=== PATIENT | male | born 1990 | race Caucasian/White ===

== ENCOUNTER 2019-10-10 13:30 | Emergency (ER) | payer OTHER, SELFPAY ==
--- NOTE | 2019-10-10 13:34 | ECG_ITS ---
Measurements Intervals [place] Rate: 57 P: 71 MS: 123 QRS: 40 QRSD: 109 T: 38 QT: 447 QTc: 438 SINUS BRADYCARDIA POSSIBLE LEFT ATRIAL ENLARGEMENT [-0.1mV P WAVE IN V1/V2] POSSIBLE LEFT VENTRICULAR HYPERTROPHY [VOLTAGE CRITERIA PLUS LAE OR QRS WIDENING] No previous ECG available for comparison Electronically Signed On 10-10-2019 18:56:03 CDT by Sara Ornelas M.D. [id number]
[2019-10-10 14:02] VITALS: BP 132/87; PULSE 76; RESP 18; TEMP 36.7; O2SAT 99; BMI 24.4
[2019-10-10 15:11] LABS: Basophils % 0.4 %; Eosinophils # 0.1 10^3/uL (0.0-0.8); Eosinophils % 0.8 %; Hematocrit 43.8 % (42.0-52.0); Hemoglobin 14.9 g/dL (11.7-16.6); Lymphocytes # 1.6 10^3/uL (0.8-4.8); Lymphocytes % 21.2 %; Mean Corpuscular Hemoglobin 30.3 pg (28.0-34.0); Mean Corpuscular Volume 89.2 fL (80-94); Mean Platelet Volume 11.4 fL (7.4-10.4); Monocytes # 0.5 10^3/uL (0.2-0.9); Monocytes % 6.6 %; Neutrophils # 5.3 10^3/uL (1.8-7.7); Neutrophils % 70.7 %; Nucleated Red Blood Cells % 0 %; Platelet Count 208 10^3/cmm (130-400); Red Blood Count 4.91 10^6/uL (4.1-5.3); Red Cell Distribution Width 12.2 % (12.1-15.1); White Blood Count 7.6 10^3/uL (4.0-10.0)
[2019-10-10 15:43] LABS: Alanine Aminotransferase 17 U/L (0-41); Albumin Level 4.4 g/dL (3.5-5.2); Alkaline Phosphatase 56 IU/L (40-130); Anion Gap 12.8 (5-19); Aspartate Amino Transferase 14 U/L (0-40); Blood Urea Nitrogen 11 mg/dL (6-20); Calcium 9.2 mg/dL (8.5-10.5); Carbon Dioxide 26 mmol/L (22-29); Chloride 102 mmol/L (98-107); Globulin 2.7 g/dL (1.3-4.6); Glomerular Filtration Rate 115.1 mL/min (90-130); Glucose 95 mg/dL (65-115); Osmolality Calculated 280 mOsm/kg (285-295); Potassium 3.8 mmol/L (3.5-5.1); Sodium 137 mmol/L (136-145); Total Bilirubin 0.5 mg/dL (0.15-1.2); Total Protein 7.1 g/dL (6.6-8.7)
--- NOTE | 2019-10-10 15:46 | W.ED.SYNCOPE ---
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 He was standing talking to some coworkers and suddenly felt lightheaded and dizzy. Within a few seconds he fell forward and passed out. He did not injure himself as 1 of his coworkers caught him before he hit the ground. They say he was out just for a few seconds and was shaking a little bit. EMS was called and told him that his eyes looked glazed. Does not sound like he had a true post ictal phase. He denies any recent illness whatsoever. He specifically denies cough, fever, night sweats, weight loss, urinary difficulties, excessive thirst, stool changes, leg swelling or pain. He has never had an episode like this in the past. No unusual activities today. He has been eating and drinking like normal. He was feeling fine prior to the episode. MD complaint: loss of consciousness Onset (ago): hour(s) (Approximately 11:00) -: second(s) Prodromal symptoms: lightheaded Witnessed: Yes - by Bystander Context: at rest and standing up Associated symptoms: Reports no associated symptoms; Deny abdominal pain, chest pain, fever(s), headache(s) or nausea Review of Systems General: Reports: 10 or more systems reviewed and unremarkable except in HPI and below Const: Denies: fever(s), chills, fatigue or malaise Eyes: Denies: change in vision ENMT: Denies: odynophagia Card: Denies: chest pain or swelling of feet/ankles Resp: Denies: dyspnea, productive cough or non-productive cough GI: Denies: abdominal pain, nausea or vomiting : Denies: flank pain Musc: Denies: neck pain or back pain Skin/Breast: Denies: rash Neuro: Denies: headache(s), numbness in extremities or weakness in extremities Endo: Denies: polyuria, polydipsia or excessive sweating Mitch/Lymph: Denies: easy bruising or easy bleeding PFSH ED PFSH: Social History Smoking and tobacco status: current every day smoker Physical Exam Const: COMMON NORMALS: no acute distress, patient oriented x3, no limitations and alert GENERAL APPEARANCE: cooperative and comfortable HENMT: HEAD & SCALP: normal to inspection FACE & SINUS: normal facial exam Eye: GENERAL EYE: appearance normal, both eyes and all related structures Neck/C-Spine: COMMON NORMALS: supple, no meningeal signs and no JVD Chest: COMMONS NORMALS: normal inspection of the chest Resp: COMMON NORMALS: normal respiratory effort, No use of accessory muscles and clear to auscultation bilaterally AUSCULTATION: clear to auscultation bilaterally Cardio: COMMON NORMALS: no JVD, regular rate, regular rhythm and No murmurs present (Cardio) RATE: regular rate RHYTHM: regular rhythm GI: COMMON NORMALS: Normal to inspection, nondistended, normoactive bowel sounds present, Soft to palpation and non-tender INSPECTION: Yes normal to inspection AUSCULTATION: Yes normoactive bowel sounds PALPATION: Yes Soft to palpation Back/Pelvis: COMMON NORMALS: thoracic and lumbar spine normal to inspection Extremity: COMMON NORMALS: normal to inspection Neuro: COMMON NORMALS: patient oriented x3, moves all extremities, no focal motor deficits and no sensory deficits noted SENSORIUM/ORIENTATION: Yes alert MENINGEAL SIGNS: Yes no meningeal signs Psych: COMMON NORMALS: mental status grossly normal, cooperative and normal affect Skin: COMMON NORMALS: no rashes or lesions noted and turgor normal GENERAL SKIN EXAM: no rashes or lesions noted and turgor normal Course ED course: Patient was completely stable in the ED. Orthostatics were negative. EKGs were unremarkable twice. Labs were all unremarkable. I have discussed with him the need for follow-up and put in an order for case management to arrange for follow-up. He drives for a living and I have asked him not to drive which is can to be a hardship for him but he understands the reasoning behind it and agrees to not drive. Hopefully he will be able to get a close follow-up appointment so that further investigation can be undertaken if needed. Vital Signs: Vital signs: Vital Signs Temperature 98.1 F 10/10/19 14:02 Pulse Rate 67 10/10/19 15:52 Respiratory Rate 18 10/10/19 14:02 Blood Pressure 127/70 10/10/19 15:52 Pulse Oximetry 99 10/10/19 14:02 MDM - Syncope Lab Data: Labs: Lab Results 10/10/19 10/10/19 10/10/19 Range/Units 14:29 15:07 15:07 WBC 7.6 (4.0-10.0) 10^3/ uL RBC 4.91 (4.1-5.3) 10^6/u L Hgb 14.9 (11.7-16.6) g/dL Hct 43.8 (42.0-52.0) % MCV 89.2 (80-94) fL MCH 30.3 (28.0-34.0) pg MCHC 34.0 (30.0-36.0) g/dL RDW 12.2 (12.1-15.1) % Plt Count 208 (130-400) 10^3/c mm MPV 11.4 H (7.4-10.4) fL Neut % (Auto) 70.7 % Lymph % (Auto) 21.2 % [place] % (Auto) 6.6 % Eos % (Auto) 0.8 % Baso % (Auto) 0.4 % Neut # (Auto) 5.3 (1.8-7.7) 10^3/u L Lymph # (Auto) 1.6 (0.8-4.8) 10^3/u L [place] # (Auto) 0.5 (0.2-0.9) 10^3/u L Eos # (Auto) 0.1 (0.0-0.8) 10^3/u L Baso # (Auto) 0.0 (0.0-0.1) 10^3/u L Nucleated RBC % (a uto) 0 % Nucleated RBCs # 0.0 /100WBC Sodium 137 (136-145) mmol/L Potassium 3.8 (3.5-5.1) mmol/L Chloride 102 (98-107) mmol/L Carbon Dioxide 26 (22-29) mmol/L Anion Gap 12.8 (5-19) BUN 11 (6-20) mg/dL Creatinine 0.8 (0.7-1.2) mg/dL GFR Calculation 115.1 (90-130) mL/min Glucose 95 (65-115) mg/dL Calculated Osmolal ity 280 L (285-295) mOsm/k g Calcium 9.2 (8.5-10.5) mg/dL Total Bilirubin 0.5 (0.15-1.2) mg/dL AST 14 (0-40) U/L ALT 17 (0-41) U/L Alkaline Phosphata se 56 (40-130) IU/L Total Protein 7.1 (6.6-8.7) g/dL Albumin 4.4 (3.5-5.2) g/dL Globulin 2.7 (1.3-4.6) g/dL Urine Color Yellow (Yellow) Urine Appearance Clear (CLEAR) Urine pH 6 (5-7) Ur Specific Gravit y 1.010 (1.005-1.030) Urine Protein Neg (Negative) Urine Glucose (UA) Norm (Normal) Urine Ketones Negative (Negative) Urine Blood Neg (Negative) Urine Nitrate Negative (Negative) Urine Bilirubin Neg (NEGATIVE) Urine Urobilinogen Norm (Negative) mg/dL Ur Leukocyte Lyla ase Negative (Negative) Discharge Plan Discharge Patient Disposition: Home, Self-Care Clinical Impression: Syncope Qualifiers: Syncope type: unspecified Qualified Code(s): R55 - Syncope and collapse Condition: Stable Prescriptions: No Action No Known Home Medications RF: 0 Discharge Orders: Discharge Order (Routine); Ordered 10/10/19 Ordered By: Yojana Greenwood Discharge Diet: Usual diet Discharge Activity: Resume usual activity and Return to work/school after cleared by PCP/Specialist Patient Instructions: Syncope (ED) Activity Restrictions/Additional Instructions: Do not drive until you have been seen and cleared by a follow up physician. Return to the ED if any further episodes of passing out or nearly passing out. Expect someone to call you about setting up a follow up appointment on Sunday. Coding Level of Care Code ED [employer] Economist for [place] Fwd Exam Comprehensive
[2019-10-10 15:52] VITALS: BP 112/84; BP 127/70; BP 128/71; PULSE 67; PULSE 69; PULSE 83
[2019-10-10 15:58] LABS: Add Urine Microscopic? NO
[2019-10-10 16:06] LABS: Bilirubin Urine Neg (NEGATIVE); Blood Urine Neg (Negative); Glucose Urine UA Norm (Normal); Ketones Urine Negative (Negative); Leukocyte Esterase Urine Negative (Negative); Nitrate Urine Negative (Negative); Protein Urine Neg (Negative); Urine Appearance Clear (CLEAR); Urine Color Yellow (Yellow); Urobilinogen Urine Norm (Negative); pH Urine 6 (5-7)
--- NOTE | 2019-10-10 16:58 | ECG_ITS ---
Measurements Intervals [place] Rate: 60 P: 72 OR: 124 QRS: 39 QRSD: 110 T: 32 QT: 449 QTc: 452 SINUS RHYTHM POSSIBLE LEFT VENTRICULAR HYPERTROPHY [VOLTAGE CRITERIA PLUS LAE OR QRS WIDENING] No previous ECG available for comparison Electronically Signed On 10-10-2019 18:56:09 CDT by Sara Ornelas M.D. [id number]
[2019-10-10 19:00] VITALS: BP 109/63; PULSE 53; RESP 16; TEMP 36.5; O2SAT 100
--- NOTE | 2019-10-14 11:31 | DCPLANNER ---
manager law had message to schedule a follow up appointment for patient with Dr. Richards. manager law called the office of Dr. Richards, spoke with Lisa, a follow up appointment is scheduled for Sunday, November 05, 2019 at 8:[address] Richards. manager law called patient at phone number , case consultant was unable to speak with patient. manager law left a voicemail for patient to return manager case phone call.
--- NOTE | 2019-11-12 13:52 | DCPLANNER ---
Patient had an appointment scheduled for 11.05.19 with . Appointment was cancelled.
== END 2019-10-10 19:03 | disposition home or self-care (01) ==
PROVIDERS: Emergency Medicine; Emergency Provider Emergency Medicine
DX: R55 Syncope and collapse (principal); F17.210 Nicotine dependence, cigarettes, uncomplicated
CPT/HCPCS: 12345; 36415; 80053; 81003; 85025; 93005; 99283

== ENCOUNTER → 2021-06-01 16:09 | Outpatient (BNVA) | payer SELFPAY | PROVIDERS: Visit Provider Family Medicine Adult Medicine | DX: H10.9 Unspecified conjunctivitis (principal); R36.9 Urethral discharge, unspecified | CPT/HCPCS: 86592; 87491; 87591 ==